=== PATIENT | female | born 1950 | race Caucasian/White ===

== ENCOUNTER → 2025-03-23 | Outpatient (CLI) | payer MEDICARE, BC ==
--- NOTE | 2025-03-23 11:31 | CT ---
EXAMINATION TYPE: CT abdomen pelvis wo con DATE OF EXAM: 03/23/2025 10:54 AM COMPARISON: None. CLINICAL INDICATION: Female, 74 years old with history of I89.0 LYMPHEDEMA; Lymphedema TECHNIQUE: CT of the abdomen and pelvis without IV contrast. Sagittal and coronal reformats were crea kristin on a separate workstation. CT DLP: 401 mGycm, Automated exposure control for dose reduction was used. FINDINGS: LOWER CHEST: Trace basilar pericardial effusion. Heart upper limits of normal in size. Some strandy a telectasis in the lower lungs. No pleural effusion. Paucity of intra-abdominal fat and lack of contrast limits assessment of the solid abdominal viscera, lymph nodes, and vascular structures. ABDOMEN LIVER: 3.4 cm hypodense lesion right liver lobe. 1.7 cm hypodense lesion left hepatic dome. GALLBLADDER AND BILE DUCTS: Cholecystectomy clips.. PANCREAS: Unremarkable. SPLEEN: Unremarkable. ADRENAL GLANDS: Mild diffuse low-density thickening without discrete nodularity. KIDNEYS AND URETERS: There are 5 nonobstructing stones in the right kidney measuring up to 4 mm. 4 no nobstructive stones left kidney measuring up to 4 mm. There is asymmetric mild fullness of the right renal collecting system. Extrarenal pelvis left kidney noted. Punctate 1 mm calcification in the depe ndent midline bladder. PELVIS BLADDER: Mild circumferential wall thickening. Punctate 1 mm calcification dependent midline, axial i mage 71. REPRODUCTIVE: Uterus not well seen, either surgically absent or obscured by clustered, nonopacified b owel loops. No abnormal fluid collection the pelvis or pelvic adenopathy. ABDOMEN & PELVIS STOMACH AND BOWEL: No evidence of bowel obstruction. Moderate stool burden. PERITONEUM/RETROPERITONEUM: No evidence of pneumoperitoneum or free fluid. VASCULATURE: Mild to moderate atherosclerotic calcifications abdominal aorta and common iliac arterie s without aneurysm. There appears to be a retroaortic left renal vein.. MUSCULOSKELETAL: Nonspecific 9 mm sclerotic focus in L2 vertebral body, probably a bone island. LYMPH NODES: Very limited assessment. No gross evidence for lymphadenopathy. SOFT TISSUE/ABDOMINAL WALL: Unremarkable IMPRESSION: 1. Asymmetric fullness right renal collecting system. Given a punctate 1 mm bladder stone, correlate for the possibility of a recently passed calculus. Bilateral nephrolithiasis measuring up to 4 mm 2. Exam limited due to paucity of intra-abdominal fat and lack of contrast. 3. Two nonspecific liver lesions measuring 3.4 cm and 1.7 cm. Recommend further initial attempt at ch aracterization with liver ultrasound. If the lesions remain indeterminate, contrast enhanced liver CT or MRI may be indicated. 4. Mild circumferential bladder wall thickening may be chronic for the patient. Correlate to exclude cystitis. 5. Moderate stool burden. [facility], Workstation: [facility], 03/23/2025 11:29 AM
== END | disposition home or self-care (01) ==
LOC: RADCTMAIN 10:29
PROVIDERS: ATTEND Internal Medicine Hematology & Oncology
DX: N20.0 Calculus of kidney (principal); I89.0 Lymphedema, not elsewhere classified; D72.819 Decreased white blood cell count, unspecified; D51.9 Vitamin B12 deficiency anemia, unspecified; D75.89 Other specified diseases of blood and blood-forming organs; K76.89 Other specified diseases of liver
CPT/HCPCS: 74176